=== PATIENT | female | born 1990 | race Caucasian/White ===

== ENCOUNTER 2024-10-18 15:23 | Outpatient (CLI) | payer MEDICAID, SELFPAY | END 2024-10-18 15:24 | disposition home or self-care (01) | PROVIDERS: Visit Provider Obstetrics & Gynecology | DX: N93.9 Abnormal uterine and vaginal bleeding, unspecified (principal) | CPT/HCPCS: 83498; 84146; 84270; 84402; 84403; 84443 ==

== ENCOUNTER 2024-11-01 13:20 | Outpatient (CLI) | payer MEDICAID, SELFPAY | END 2024-11-01 13:21 | disposition home or self-care (01) | LOC: US 13:21 | PROVIDERS: Visit Provider Obstetrics & Gynecology | DX: N93.9 Abnormal uterine and vaginal bleeding, unspecified (principal) | CPT/HCPCS: 76830; 76856 ==

== ENCOUNTER 2024-11-01 14:48 | Outpatient (CLI) | payer MEDICAID, SELFPAY | END 2024-11-01 14:49 | disposition home or self-care (01) | LOC: NFLDREF 15:09 | PROVIDERS: Visit Provider Obstetrics & Gynecology | DX: Z13.220 Encounter for screening for lipoid disorders (principal) | CPT/HCPCS: 80061 ==

== ENCOUNTER 2024-12-07 11:18 | Outpatient (CLI) | payer MEDICAID, SELFPAY | END 2024-12-07 11:19 | disposition home or self-care (01) | LOC: NFLDREF 11:19 | PROVIDERS: Visit Provider Obstetrics & Gynecology | DX: Z79.899 Other long term (current) drug therapy (principal) | CPT/HCPCS: 84132 ==